=== PATIENT | female | born 1990 | race American Indian/Alaskan Native ===

== ENCOUNTER 2017-03-02 15:37 | Emergency (ER) | payer MEDICAID ==
--- NOTE | 2017-03-02 16:29 | EDM.PDOC ---
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 Patient reports she found out last week that she is . She took 2 at home urine test which were both positive. Her last menstrual period was sometime in December,. She states that her menstrual cycles are very irregular. She is unsure of how far along she is. she is a . 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 Has not yet started a vitamin. patient reports cramping to the right pelvis. She reports associated symptoms of feelings of hot and cold, heartburn and itching on some breast tenderness. She denies any dysuria, nausea, vomiting or vaginal bleeding. Patient is concerned as she has placental separation. Patient had placental separation with her last . She states that she is having symptoms similar to her last which prompted her visit to the ER today. Patient does not know her blood type. Does not smoke. Drinks a glass of wine daily, quite when she found out she was . 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 Denies: Nausea, Vomiting : Reports: no symptoms, pain (right pelvic pain), other (denies any vaginal bleeding; reports breast tenderness). Denies: dysuria, hematuria Skin: Reports: pruritis (to the palms) ED EXAM - Physical Exam Exam: See Below Exam Limited By: No limitations General Appearance: alert, WD/WN, no apparent distress Respiratory/Chest: no respiratory distress, lungs clear, normal breath sounds Cardiovascular: normal peripheral pulses, regular rate, rhythm, no murmur GI/Abdominal: normal bowel sounds, soft, tender (mild epigastric and right pelvis; no pain at mcburnies point) (Female) Exam: Normal external exam, Normal speculum exam. No: Cervical dilatation, Cervix motion tenderness Neurological: alert, oriented, normal cognition Psychiatric: normal affect, normal mood Skin Exam: Warm, Dry, Normal color Course - Vital Signs Last Recorded V/S: Last Vital Signs Temp 36.8 C 03/02/17 15:45 Pulse 78 03/02/17 18:00 Resp 16 03/02/17 18:00 BP 138/80 03/02/17 18:00 Pulse Ox 100 03/02/17 18:00 - Orders/Labs/Meds Orders: Active Orders 24 hr Category Date Time Status ABO/RH TYPE [BBK] Stat Lab 03/02/17 16:25 Results GC/CHLAMYDIA BY PCR [MOLEC] Stat Lab 03/02/17 17:15 Received HEPATITIS PANEL, ACUTE [REF] Stat Lab 03/02/17 16:25 Received PATIENT RETYPE [BBK] Stat Lab 03/02/17 16:25 Results RPR [REF] Stat Lab 03/02/17 16:25 Received Labs: Laboratory Tests 03/02/17 03/02/17 03/02/17 Range/Units 16:25 16:25 16:25 HCG, Quant 3431.0 mIU/mL Urine Color (Yellow) Urine Appearance (Clear) Urine pH (5.0-8.0) Ur Specific [place] (1.005-1.030) Urine Protein (Negative) Urine Glucose (UA) (Negative) Urine Ketones (Negative) Urine Occult Blood (Negative) Urine Nitrite (Negative) Urine Bilirubin (Negative) Urine Urobilinogen (0.2-1.0) Ur Leukocyte Esterase (Negative) Urine RBC (0-5) /hpf Urine WBC (0-5) /hpf Ur Epithelial Cells Ur Squamous Epith Cells (0-5) /hpf Urine Bacteria (FEW) /hpf Urine Mucus (FEW) /hpf HIV-1 Ab Rapid Screen Negative (NEGATIVE) Blood Type A POSITIVE 03/02/17 Range/Units 16:25 HCG, Quant mIU/mL Urine Color Yellow (Yellow) Urine Appearance Clear (Clear) Urine pH 5.5 (5.0-8.0) Ur Specific [place] > or = 1.030 (1.005-1.030) Urine Protein Negative (Negative) Urine Glucose (UA) Negative (Negative) Urine Ketones Negative (Negative) Urine Occult Blood Negative (Negative) Urine Nitrite Negative (Negative) Urine Bilirubin Negative (Negative) Urine Urobilinogen 0.2 (0.2-1.0) Ur Leukocyte Esterase Negative (Negative) Urine RBC 0-5 (0-5) /hpf Urine WBC 0-5 (0-5) /hpf Ur Epithelial Cells Not Reportable Ur Squamous Epith Cells 5-10 H (0-5) /hpf Urine Bacteria Few (FEW) /hpf Urine Mucus Few (FEW) /hpf HIV-1 Ab Rapid Screen (NEGATIVE) Blood Type - Radiology Interpretation Free Text/Narrative:: Transvaginal ob ultrasound impression per Dr. Astudillo: 1. Possible very early gestational sac within the endometrial cavity . Recommend follow-up study in 11 days if patient's clinical symptoms don't warrant earlier imaging. 2. Other incidental findings as noted above. No adnexal mass or free fluid is seen. CT Results Date: 03/02/17 - Re-Assessments/Exams Free Text/Narrative Re-Assessment/Exam: 03/02/17 17:48 Patient asked that we preform a full STD screen tonight. Labs returned. Bood type is A+ HiV rapid is negative HCG is 3431 UA is unremarkable. wet prep, GC Chlamydia is pending. hepatitis panel and RPR are send outs - Will call if results are positive. Reviewed the labs and ultrasound with the patient. Follow-up with PCP in 2 days for a repeat quant. Discharge instructions as documented. Departure - Departure Time of Disposition: 17:49 Disposition: Home, Self-Care 01 Condition: good Clinical Impression: Instructions: First Trimester of , [id number] Referrals: PCP,Unknown [Ordering Only Provider] - Deb Rodriguez MD [Ordering Only Provider] - Forms: ED Department Discharge Additional Instructions: Follow-up with your ob-chain tender provider in 2 days for a repeat of your hCG. Avoid alcohol and tobacco products. Start a vitamin. We will call you with the remainder of your test results. If you do not hear from us assume that these test results were negative. Please return to the ER should your symptoms change or worsen. In particular would like to see you for severe pain, vaginal bleeding or any other concerning symptoms. - My Orders Last 24 Hours: My Active Orders 03/02/17 16:25 ABO/RH TYPE [BBK] Stat HEPATITIS PANEL, ACUTE [REF] Stat PATIENT RETYPE [BBK] Stat RPR [REF] Stat 03/02/17 17:15 GC/CHLAMYDIA BY PCR [MOLEC] Stat - Assessment/Plan Last 24 Hours: My Active Orders 03/02/17 16:25 ABO/RH TYPE [BBK] Stat HEPATITIS PANEL, ACUTE [REF] Stat PATIENT RETYPE [BBK] Stat RPR [REF] Stat 03/02/17 17:15 GC/CHLAMYDIA BY PCR [MOLEC] Stat
--- NOTE | 2017-03-02 17:38 | US ---
First trimester obstetrical ultrasound: Multiple real-time images are obtained transvaginally. Small hypoechoic area, possibly due to very early gestational sac is noted within the endometrial cavity. Sac size is too small to visualize yolk sac or pole. Small nabothian cyst is seen as well as minimal hyperechoic area within the cervix which is felt to be incidental. Ovaries are seen and appear within normal limits. No free fluid is seen. Impression: 1. Possible very early gestational sac within the endometrial cavity. Recommend follow-up study and 11 days if patient's clinical symptoms don't warrant earlier imaging. 2. Other incidental findings as noted above. No adnexal mass or free fluid is seen. Diagnostic code #3
[2017-03-02 18:03] VITALS: BP 138/80
[2017-03-02 21:40] LABS: C. TRACHOMATIS BY PCR NOT DETECTED; N. GONORRHOEAE BY PCR NOT DETECTED
== END 2017-03-02 18:00 | disposition home or self-care (01) ==
LOC: JD.ED 15:37
DX: O99.89 Other specified diseases and conditions complicating pregnancy, childbirth and the puerperium (principal); R10.2 Pelvic and perineal pain; Z87.891 Personal history of nicotine dependence; Z79.899 Other long term (current) drug therapy
CPT/HCPCS: 36415; 76817; 76817-26; 80074; 81001; 84702; 86592; 86900; 86901; 87210; 87449; 87491; 87591; 87808; 99283; 99284-25

== ENCOUNTER 2017-06-05 15:51 | Emergency (ER) | payer MEDICAID ==
--- NOTE | 2017-06-05 18:19 | EDM.PDOC ---
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 Patient reports that the cramping and bleeding started 2 days ago after having intercourse. She reports that the cramping is in her pelvis and lower abdomen. Reports that it comes and goes. He describes it like menstrual cramps. Patient reports that she had an IUD placed April 14. She has not had any problems with IUD. Reports it is a copper IUD without any hormones. Patient reports associated symptoms of chills. No fevers, nausea, vomiting, flank pain, dysuria or hematuria. She has experienced some lower back pain. Patient reports she recently had a miscarriage prior to having the IUD placed. Patient reports that she frequently gets bacterial vaginosis. She does not feel that she has this today. 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: grav2 para 1 - Past Surgical History HEENT Surgical History: Reports: Eye Surgery, Myringotomy w Tube(s) Musculoskeletal Surgical History: Reports: Shoulder Surgery Social & Family History - Family History Family Medical History: Noncontributory - Tobacco Use Smoking Status *Q: Light Tobacco Smoker Years of Tobacco use: 6 Packs/Tins Daily: 0.1 Used Tobacco, but Quit: Yes Month Tobacco Last Used: january - Caffeine Use Caffeine Use: Reports: Coffee, Soda - Recreational Drug Use Recreational Drug Use: No ED ROS GENERAL - Review of Systems Review Of Systems: See Below Constitutional: Reports: Chills. Denies: Fever GI/Abdominal: Reports: Abdominal Pain (lower abdomen, pelvic). Denies: Nausea, Vomiting : Reports: Other (vaginal bleeding). Denies: Dysuria, Flank Pain, Hematuria Musculoskeletal: Reports: Back Pain (low back) ED EXAM, GI/ABD - Physical Exam Exam: See Below Exam Limited By: No Limitations General Appearance: Alert, WD/WN, No Apparent Distress Respiratory/Chest: No Respiratory Distress, Lungs Clear, Normal Breath Sounds Cardiovascular: Normal Peripheral Pulses, Regular Rate, Rhythm, No Murmur GI/Abdominal Exam: Normal Bowel Sounds, Soft, Non-Tender, Other (no mcburnies sign) (Female) Exam: Normal Speculum Exam, Vaginal Discharge, Other (IUD strings seen) Back Exam: Normal Inspection. No: CVA Tenderness (L), CVA Tenderness (R) Neurological: Alert, Oriented, Normal Cognition Psychiatric: Normal Affect, Normal Mood Skin Exam: Warm, Dry, Normal Color Course - Vital Signs Last Recorded V/S: Last Vital Signs Temp 36.4 C 06/05/17 15:57 Pulse 72 06/05/17 20:02 Resp 16 06/05/17 20:02 BP 112/70 06/05/17 20:02 Pulse Ox 97 06/05/17 20:02 - Orders/Labs/Meds Labs: Laboratory Tests 06/05/17 06/05/17 06/05/17 Range/Units 14:45 14:45 14:45 WBC 7.61 (3.98-10.04) K/mm3 RBC 4.62 (3.98-5.22) M/mm3 Hgb 14.3 (11.2-15.7) gm/L Hct 42.4 (34.1-44.9) % MCV 91.8 (79.4-94.8) fl MCH 31.0 (25.6-32.2) pg MCHC 33.7 (32.2-35.5) g/dl RDW Std Deviation 45.8 (36.4-46.3) fL Plt Count 311 (182-369) K/mm3 MPV 9.7 (9.4-12.3) fl Neut % (Auto) 58.2 (34.0-71.1) % Lymph % (Auto) 28.3 (19.3-51.7) % Daniels % (Auto) 12.2 (4.7-12.5) % Eos % (Auto) 0.7 (0.7-5.8) Baso % (Auto) 0.5 (0.1-1.2) % Neut # (Auto) 4.43 (1.56-6.13) K/mm3 Lymph # (Auto) 2.15 (1.18-3.74) K/mm3 Daniels # (Auto) 0.93 H (0.24-0.36) K/mm3 Eos # (Auto) 0.05 (0.04-0.36) K/mm3 Baso # (Auto) 0.04 (0.01-0.08) K/mm3 C-Reactive Protein < 0.2 (<1.0) mg/dL HCG, Qual Negative (NEGATIVE) Urine Color (Yellow) Urine Appearance (Clear) Urine pH (5.0-8.0) Ur Specific [place] (1.005-1.030) Urine Protein (Negative) Urine Glucose (UA) (Negative) Urine Ketones (Negative) Urine Occult Blood (Negative) Urine Nitrite (Negative) Urine Bilirubin (Negative) Urine Urobilinogen (0.2-1.0) Ur Leukocyte Esterase (Negative) Urine RBC (0-5) /hpf Urine WBC (0-5) /hpf Ur Epithelial Cells (0-5) /hpf Amorphous Sediment (NOT SEEN) /hpf Urine Bacteria (FEW) /hpf Urine Mucus (FEW) /hpf C trachomatis DNA (PCR) N gonorrhoeae DNA (PCR) 06/05/17 06/05/17 Range/Units 17:55 18:50 WBC (3.98-10.04) K/mm3 RBC (3.98-5.22) M/mm3 Hgb (11.2-15.7) gm/L Hct (34.1-44.9) % MCV (79.4-94.8) fl MCH (25.6-32.2) pg MCHC (32.2-35.5) g/dl RDW Std Deviation (36.4-46.3) fL Plt Count (182-369) K/mm3 MPV (9.4-12.3) fl Neut % (Auto) (34.0-71.1) % Lymph % (Auto) (19.3-51.7) % Daniels % (Auto) (4.7-12.5) % Eos % (Auto) (0.7-5.8) Baso % (Auto) (0.1-1.2) % Neut # (Auto) (1.56-6.13) K/mm3 Lymph # (Auto) (1.18-3.74) K/mm3 Daniels # (Auto) (0.24-0.36) K/mm3 Eos # (Auto) (0.04-0.36) K/mm3 Baso # (Auto) (0.01-0.08) K/mm3 C-Reactive Protein (<1.0) mg/dL HCG, Qual (NEGATIVE) Urine Color Light yellow (Yellow) Urine Appearance Slt cloudy H (Clear) Urine pH 8.5 H (5.0-8.0) Ur Specific [place] 1.020 (1.005-1.030) Urine Protein 1+ H (Negative) Urine Glucose (UA) Negative (Negative) Urine Ketones Negative (Negative) Urine Occult Blood 1+ H (Negative) Urine Nitrite Negative (Negative) Urine Bilirubin Negative (Negative) Urine Urobilinogen 0.2 (0.2-1.0) Ur Leukocyte Esterase Negative (Negative) Urine RBC 0-5 (0-5) /hpf Urine WBC 5-10 H (0-5) /hpf Ur Epithelial Cells 20-30 H (0-5) /hpf Amorphous Sediment Many H (NOT SEEN) /hpf Urine Bacteria Many H (FEW) /hpf Urine Mucus Not seen (FEW) /hpf C trachomatis DNA (PCR) Not detected N gonorrhoeae DNA (PCR) Not detected Meds: Medications Discontinued Medications Generic Name Dose Route Start Last Admin Trade Name Slickq PRN Reason Stop Dose Admin Acetaminophen 650 mg 06/05/17 18:54 06/05/17 19:25 Tylenol PO 06/05/17 18:55 650 mg NOW ONE Administration - Radiology Interpretation Free Text/Narrative:: Transvaginal ultrasound impression per [facility]: 1. low lying IUD. Clinical correlation is recommended in regard to ideal IUD placement. 2. Polycystic ovaries are suspected. CT Results Date: 06/05/17 - Re-Assessments/Exams Free Text/Narrative Re-Assessment/Exam: 06/05/17 19:49 On her vaginal exam is able to appreciate the IUD strings. She states that she has not been checking these. We decided to go ahead and get a transvaginal ultrasound anyways to rule out any ovarian cyst. Labs have returned. White blood cell count 7.61, hemoglobin 14.3 and platelets 311. CRP is normal at <0.2. HCG is negative. Wet prep has a few clue cells but no trichomonas or eloisa. UA has 1+ protein, 1+ blood, negative for nitrates and leukocytes. Many bacteria seen on microscopy. Gonorrhea and Chlamydia are negative. I reviewed the labs and ultrasound result with the patient. I will have her follow-up with OB at her earliest convenience.I feel the cramping and the vaginal bleeding is likely from the low-lying IUD. Note for work given. Discharge instructions instructed. Departure - Departure Time of Disposition: 19:50 Disposition: Home, Self-Care 01 Condition: Good Clinical Impression: Malpositioned IUD, Polycystic ovaries - Discharge Information Instructions: Polycystic Ovarian Syndrome Referrals: Deb Rodriguez MD [Primary Care Provider] - Alicia Hutson MD [Physician] - Forms: ED Department Discharge, ED Return to Work/School Form Additional Instructions: [id number] Tylenol or Motrin as needed for pain relief. Also recommend using a heating pad. Follow up with OB as soon as you're able to. Recommend Dr. Gerard or Dr. Cee at [place]. Call [phone] to schedule with either provider there. Let them know that you have a low-lying IUD. You also have polycystic ovaries. Note for work given. Please return to the ER if your symptoms change or worsen.
[2017-06-05] MEDS ORDERED: Acetaminophen 325 MG Tab PO ONE (18:54)
[2017-06-05 19:34] LABS: C. TRACHOMATIS BY PCR NOT DETECTED; N. GONORRHOEAE BY PCR NOT DETECTED
[2017-06-05 20:09] VITALS: BP 112/70
--- NOTE | 2017-06-06 06:50 | US ---
Pelvic ultrasound: Multiple real-time images of the pelvis were obtained. Comparison: No previous study. Echogenic IUD noted within the lower uterine body and lower uterine segment of the endometrial canal. This is low in position. Incidental nabothian cyst is seen. No myometrial abnormality is identified. Multiple follicles are seen within both ovaries. No larger cyst or solid abnormality is seen. Measurements: Uterus: Length 7.0 cm, AP height 3.5 cm, transverse width 4.5 cm Right ovary: 4.1 x 1.9 x 2.9 cm Left ovary: 3.8 x 2.0 x 2.4 cm Impression: 1. Echogenic IUD present within the lower uterine body and lower uterine segment within the endometrial canal. The position of this IUD is lower than usually expected. 2. Incidental nabothian cyst. 3. Pelvic ultrasound is otherwise unremarkable. Diagnostic code #3 I agree with preliminary report issued by [facility] ([facility] report finalized on 06/05/17, 8:36 PM Central Time)
== END 2017-06-05 20:02 | disposition home or self-care (01) ==
LOC: JD.ED 15:51
DX: T83.32XA Displacement of intrauterine contraceptive device, initial encounter (principal); E28.2 Polycystic ovarian syndrome; F17.210 Nicotine dependence, cigarettes, uncomplicated; Z96.22 Myringotomy tube(s) status; Z98.890 Other specified postprocedural states; Z79.899 Other long term (current) drug therapy
CPT/HCPCS: 36415; 76830; 81001; 84703; 85025; 86140; 87210; 87491; 87591; 87808; 99284; A9270; 99283